=== PATIENT | male | born 1950 | race Caucasian/White ===

== ENCOUNTER → 2019-09-19 | Outpatient (CLI) | payer OTHER ==
[~2019-09-19] MED LIST: CHOL10003 PO; CIPR500T3 PO; ENAL20TA PO; HYDROCHLOROTHIAZIDE PO; OXYC1TAB7 PO; POTASSIUM CITRATE PO; RISE35TA PO
== END | disposition home or self-care (01) ==
LOC: CFH 10:08
PROVIDERS: ATTEND Internal Medicine Gastroenterology
DX: D50.9 Iron deficiency anemia, unspecified (principal); F17.200 Nicotine dependence, unspecified, uncomplicated
CPT/HCPCS: 74018

== ENCOUNTER → 2019-09-20 | Outpatient (CLI) | payer OTHER | END | disposition home or self-care (01) | LOC: CFH 10:07 | PROVIDERS: ATTEND Internal Medicine Gastroenterology | DX: K80.20 Calculus of gallbladder without cholecystitis without obstruction (principal); D50.9 Iron deficiency anemia, unspecified; Z87.891 Personal history of nicotine dependence | CPT/HCPCS: 74018 ==